=== PATIENT | female | born 1980 | race Caucasian/White ===

== ENCOUNTER 2017-06-08 08:18 | Emergency (ER) | payer SELFPAY ==
[~2017-06-08] VITALS: Ht 149.9 cm; Wt 59.0 kg
[~2017-06-08 08:18] MED LIST: FLAG500T PO
[2017-06-08 08:23] VITALS: BP 149/87; PULSE 85; RESP 16; TEMP 98; O2SAT 98
[2017-06-08] MEDS ORDERED: SODIUM CHLOR 0.9% 1000 ML INJ 1,000 ML IV ONE (08:33)
[2017-06-08] MEDS ORDERED: PROCHLORPERAZINE INJ 10 MG/2 ML VIAL IVP ONE (08:45)
[2017-06-08] MEDS ORDERED: SODIUM CHLORIDE 0.9% FLUSH 10 ML FLUSH IVF PRN (08:45)
[2017-06-08] MEDS ORDERED: diphenhydrAMINE HCL 50 MG/ML VIAL IVP ONE (08:45)
[2017-06-08] MEDS ORDERED: ACETAMINOPHEN 325 MG TAB PO ONE (08:45)
[2017-06-08] MEDS ORDERED: VIST50CA PO (08:54)
[2017-06-08] MEDS ORDERED: TRAZ100T10 PO (08:54)
[2017-06-08] MEDS ORDERED: ZOFR4TAB3 SL (08:59)
--- NOTE | 2017-06-08 09:00 | PD ---
HPI Chief Complaint: Head Injury Time Seen by Provider: 08:33 Travel History International Travel<30 days: No Contact w/Intl Traveler<30days: No Traveled to known affect area: No History of Present Illness HPI 37-year-old female complains of fall one week prior, mechanical, associated with head trauma, no loss of consciousness. She reports sleeping for 3-4 days afterwards. Thereafter the patient vomited numerous times. She reports bilious emesis. No bloody emesis. Diarrhea reported nonbloody. She reports chest pains generalized as well as paresthesias and electrical shocking sensations in the fingers and toes. She denies past medical history. She reports compliance with Vistaril and trazodone for anxiety. She also complains of a generalized continuous headache unrelieved by Advil. No fever. No shortness of breath. PFSH Past Medical History Hx Anticoagulant Therapy: No Bipolar Disorder: Yes Anxiety: Yes (ptsd, panic disorder) Depression: Yes Diabetes: No Tetanus Vaccination: > 5 Years ?: Not LMP: now : 0 Social History Alcohol Use: Yes (OCCASIONALLY) Tobacco Use: No Substance Use: No Allergies-Medications (Allergen,Severity, Reaction): Coded Allergies: No Known Allergies (Unverified Adverse Reaction, Unknown, 06/08/17) Reported Meds & Prescriptions Reported Meds & Active Scripts Active Keflex (Cephalexin) 250 Mg Cap 250 Mg PO Q6H 5 Days Zofran Odt (Ondansetron Odt) 4 Mg Tab 4 Mg SL Q12HR PRN Reported Trazodone (Trazodone HCl) 100 Mg Tablet 100 Mg PO HS Vistaril (Hydroxyzine Pamoate) 50 Mg Cap 50 Mg PO BID Review of Systems Except as stated in HPI: all other systems reviewed are Neg General / Constitutional: No: Fever Neurologic: No: Weakness, Dizziness, Paresthesia Physical Exam Narrative GENERAL: 37-year-old female pleasant well-nourished well-developed Vital Signs Date Time Temp Pulse Resp B/P (MAP) Pulse Ox O2 Delivery O2 Flow Rate FiO2 06/08/17 08:36 Room Air 06/08/17 08:36 99 Room Air 06/08/17 08:23 98.0 85 16 149/87 (107) 98 SKIN: Warm and dry. HEAD: Atraumatic. Normocephalic. EYES: Pupils equal and round. No scleral icterus. No injection or drainage. ENT: No nasal bleeding or discharge. Mucous membranes pink and moist. NECK: Trachea midline. No JVD. CARDIOVASCULAR: Regular rate and rhythm. RESPIRATORY: No accessory muscle use. Clear to auscultation. Breath sounds equal bilaterally. GASTROINTESTINAL: Abdomen soft, non-tender, nondistended. Hepatic and splenic margins not palpable. MUSCULOSKELETAL: Extremities without clubbing, cyanosis, or edema. No obvious deformities. NEUROLOGICAL: Awake and alert. No obvious cranial nerve deficits. Motor grossly within normal limits. Five out of 5 muscle strength in the arms and legs. Normal speech. PSYCHIATRIC: Appropriate mood and affect; insight and judgment normal. Data Data Last Documented VS Vital Signs Date Time Temp Pulse Resp B/P (MAP) Pulse Ox O2 Delivery O2 Flow Rate FiO2 06/08/17 08:36 Room Air 06/08/17 08:36 99 06/08/17 08:23 98.0 85 16 149/87 (107) Orders Orders Complete Blood Count With Diff (06/08/17 08:33) Basic Metabolic Panel (Bmp) (06/08/17 08:33) Ct Brain W/O Iv Contrast(Rout) (06/08/17 08:33) Ecg Monitoring (06/08/17 08:33) Iv Access Insert/Monitor (06/08/17 08:33) Oximetry (06/08/17 08:33) Sodium Chloride 0.9% Flush (Ns Flush) (06/08/17 08:45) Acetaminophen (Tylenol) (06/08/17 08:45) Prochlorperazine Inj (Compazine Inj) (06/08/17 08:45) Diphenhydramine Inj (Benadryl Inj) (06/08/17 08:45) Sodium Chlor 0.9% 1000 Ml Inj (Ns 1000 M (06/08/17 08:33) Electrocardiogram (06/08/17 ) Chest, Single Ap (06/08/17 ) Ed Urine Pregnancytest Poc (06/08/17 08:33) Urinalysis - C+S If Indicated (06/08/17 08:33) Ed Discharge Order (06/08/17 09:59) Labs Laboratory Tests Test 06/08/17 08:45 06/08/17 08:50 Urine Collection Type CLEAN CATCH Urine Color YELLOW Urine Turbidity CLEAR Urine pH 6.0 Urine Specific [place] 1.025 Urine Protein TRACE mg/dL Urine Glucose (UA) NEG mg/dL Urine Ketones TRACE mg/dL Urine Occult Blood SMALL Urine Nitrite NEG Urine Bilirubin NEG Urine Urobilinogen 0.2 MG/DL Urine Leukocyte Esterase NEG Urine RBC 4-9 /hpf Urine WBC 20-24 /hpf Urine Squamous Epithelial Cells > 8 /hpf Urine Bacteria OCC /hpf Urine Mucus FEW /lpf Microscopic Urinalysis Comment CULT NOT INDICATED Urine Collection Time 08:45 White Blood Count 6.6 TH/MM3 Red Blood Count 4.26 MIL/MM3 Hemoglobin 11.6 GM/DL Hematocrit 35.7 % Mean Corpuscular Volume 83.8 FL Mean Corpuscular Hemoglobin 27.1 PG Mean Corpuscular Hemoglobin Concent 32.4 % Red Cell Distribution Width 18.5 % Platelet Count 317 TH/MM3 Mean Platelet Volume 8.0 FL Neutrophils (%) (Auto) 64.3 % Lymphocytes (%) (Auto) 19.5 % Monocytes (%) (Auto) 5.1 % Eosinophils (%) (Auto) 9.9 % Basophils (%) (Auto) 1.2 % Neutrophils # (Auto) 4.2 TH/MM3 Lymphocytes # (Auto) 1.3 TH/MM3 Monocytes # (Auto) 0.3 TH/MM3 Eosinophils # (Auto) 0.7 TH/MM3 Basophils # (Auto) 0.1 TH/MM3 CBC Comment DIFF FINAL Differential Comment Creatinine 0.82 MG/DL Random Glucose 124 MG/DL Calcium Level 9.0 MG/DL Sodium Level 140 MEQ/L Potassium Level 3.6 MEQ/L Chloride Level 105 MEQ/L Carbon Dioxide Level 25.7 MEQ/L Anion Gap 9 MEQ/L Estimat Glomerular Filtration Rate 79 ML/MIN [facility] Medical Decision Making Medical Screen Exam Complete: Yes Emergency Medical Condition: Yes Medical Record Reviewed: Yes Differential Diagnosis UTI, gastroenteritis, closed head injury, intracranial hemorrhage Narrative Course Urinalysis shows a UTI Her is negative The patient received IV fluids and Compazine Benadryl Tylenol and reports feeling much better. Overall the presentation is considered to be most in keeping with a closed head injury after a fall with potentially a postconcussive type syndrome. Nausea vomiting diarrhea with urinary tract infection is considered contributory towards overall presentation. Keflex and zofran scripts. Pt reports significant subjective improvement at 1001AM. Last Impressions Head CT 06/08/17 0833 Signed Impressions: Service Date/Time: Thursday, June 08, 2017 08:55 - CONCLUSION: 1. No acute intracranial abnormality identified. Live Leyva MD Diagnosis Primary Impression: CHI (closed head injury) Qualified Codes: S09.90XA - Unspecified injury of head, initial encounter Additional Impressions: Nausea vomiting and diarrhea Chest pain Qualified Codes: R07.9 - Chest pain, unspecified Cephalalgia Qualified Codes: R51 - Headache UTI (urinary tract infection) Qualified Codes: N30.01 - Acute cystitis with hematuria Dehydration Referrals: Primary Care Physician call for appointment Med/Other Pt SpecificInfo: Prescription(s) given Scripts Cephalexin (Keflex) 250 Mg Cap 250 MG PO Q6H for Infection for 5 Days, #20 CAP 0 Refills Prov: Live Vera MD 06/08/17 Ondansetron Odt (Zofran Odt) 4 Mg Tab 4 MG SL Q12HR Y for Nausea/Vomiting, #10 TAB 0 Refills Prov: Live Vera MD 06/08/17 Disposition: 01 DISCHARGE HOME Condition: Stable Live Vera MD June 08, 2017 09:00
[2017-06-08 09:02] LABS: AUTOMATED NEUTROPHIL # 4.2 TH/MM3 (1.8-7.7); BASOPHIL # 0.1 TH/MM3 (0-0.2); BASOPHIL % 1.2 % (0.0-2.0); EOSINOPHIL # 0.7 TH/MM3 (0-0.4); EOSINOPHIL % 9.9 % (0.0-4.0); HEMATOCRIT 35.7 % (35.0-46.0); HEMOGLOBIN 11.6 GM/DL (11.6-15.3); LYMPH % 19.5 % (9.0-44.0); LYMPHOCYTE # 1.3 TH/MM3 (1.0-4.8); MEAN CELL VOLUME 83.8 FL (80.0-100.0); MEAN CORPUSCULAR HEMOGLOBIN 27.1 PG (27.0-34.0); MEAN CORPUSCULAR HGB CONC 32.4 % (32.0-36.0); MONO % 5.1 % (0.0-8.0); MONOCYTE # 0.3 TH/MM3 (0-0.9); NEUT % 64.3 % (16.0-70.0); PLATELET COUNT 317 TH/MM3 (150-450); RED BLOOD COUNT 4.26 MIL/MM3 (4.00-5.30); RED CELL DISTRIBUTION WIDTH 18.5 % (11.6-17.2); WHITE BLOOD COUNT 6.6 TH/MM3 (4.0-11.0)
[2017-06-08 09:06] LABS: BILIRUBIN, URINE NEG (NEG); BLOOD, URINE SMALL (NEG); GLUCOSE,URINE NEG (NEG); KETONE, URINE TRACE mg/dL (NEG); NITRITE,URINE NEG (NEG); URINE COLOR YELLOW (YELLW/STRAW); URINE LEUKOCYTE ESTERASE NEG (NEG)
[2017-06-08 09:11] LABS: MUCUS URINE FEW /lpf (OCC)
[2017-06-08 09:13] LABS: BACTERIA, URINE OCC /hpf; SQUAMOUS EPITHELIAL CELL URINE > 8 /hpf (0-5)
--- NOTE | 2017-06-08 09:15 | RADRPT ---
EXAM DATE/TIME: 06/08/2017 08:55 [facility] COMPARISON: No previous studies available for comparison. INDICATIONS : Trauma. Fell 1 week ago and hit head. Loss of consciousness. RADIATION DOSE: 51.86 CTDIvol (mGy) MEDICAL HISTORY : None SURGICAL HISTORY : None. ENCOUNTER: Initial ACUITY: 1 week PAIN SCALE: 7/10 LOCATION: cranial TECHNIQUE: Multiple contiguous axial images were obtained of the head. Using automated exposure control and adj ustment of the mA and/or kV according to patient size, radiation dose was kept as low as reasonably a chievable to obtain optimal diagnostic quality images. DICOM format image data is available electro nically for review and comparison. FINDINGS: CEREBRUM: The ventricles are normal for age. No evidence of midline shift, mass lesion, hemorrhage or acute in farction. No extra-axial fluid collections are seen. POSTERIOR FOSSA: The cerebellum and brainstem are intact. The 4th ventricle is midline. The cerebellopontine angle i s unremarkable. EXTRACRANIAL: The visualized portion of the orbits is intact. SKULL: The calvaria is intact. No evidence of skull fracture. CONCLUSION: 1. No acute intracranial abnormality identified. Live Leyva MD on June 08, 2017 at 9:10 Board Certified Radiologist. This report was verified electronically.
[2017-06-08] MEDS ORDERED: CEPH-459 PO (09:36)
[2017-06-08 09:53] LABS: BICARBONATE 25.7 MEQ/L (21.0-32.0)
--- NOTE | 2017-06-08 09:54 | RADRPT ---
EXAM DATE/TIME: 06/08/2017 09:23 [facility] COMPARISON: No previous studies available for comparison. INDICATIONS : Chest pain. MEDICAL HISTORY : None. SURGICAL HISTORY : None. ENCOUNTER: Initial ACUITY: 1 week PAIN SCORE: 3/10 LOCATION: Bilateral chest FINDINGS: A single view of the chest demonstrates the lungs to be symmetrically aerated without evidence of mas s, infiltrate or effusion. The cardiomediastinal contours are unremarkable. Osseous structures are intact. CONCLUSION: Unremarkable examination. Vince Teague MD on June 08, 2017 at 9:52 Board Certified Radiologist. This report was verified electronically.
[2017-06-08 09:58] LABS: CREATININE 0.82 MG/DL (0.50-1.00)
[2017-06-08 10:17] VITALS: BP 100/54
--- NOTE | 2017-06-08 11:55 | EKG ---
Date Performed: 06/08/2017 Time Performed: 08:37:17 PTAGE: 37 years EKG: Sinus rhythm NORMAL ECG NO PREVIOUS TRACING DOCTOR: Mushtaq Olivas Interpretating Date/Time 06/08/2017 11:54:39
== END 2017-06-08 10:19 | disposition home or self-care (01) ==
LOC: PHED 08:18
DX: S09.90XA Unspecified injury of head, initial encounter (principal); W19.XXXA Unspecified fall, initial encounter; R11.2 Nausea with vomiting, unspecified; R19.7 Diarrhea, unspecified; R07.9 Chest pain, unspecified; R51 Headache; N30.01 Acute cystitis with hematuria; E86.0 Dehydration; F31.9 Bipolar disorder, unspecified
CPT/HCPCS: 70450; 71045; 80048; 81001; 84703; 85025; 93005; 96361; 96374; 96375; 99285; J0780; J1200; J7030